=== PATIENT | female | born 1960 | race Caucasian/White ===

== ENCOUNTER → 2019-11-28 14:17 | Outpatient (CLI) | payer OTHER, SELFPAY ==
--- NOTE | ~2019-11-28 | MM_ITS ---
EXAMINATION: MM screening [facility] BI w nicky HISTORY: Screening mammogram TECHNIQUE: Craniocaudal and mediolateral oblique 3-D tomosynthesis images were obtained and synthetic 2-D images were generated. CAD analysis was submitted and interpreted. COMPARISON: 03/17/2015, 02/24/2015, 05/22/2008, 12/13/2007 BREAST PARENCHYMAL COMPOSITION: There are scattered areas of fibroglandular density. FINDINGS: RIGHT BREAST: Multiple right breast masses are present which are seen in the posterior third of the u pper outer quadrant of the breasts, the posterior third of the lower inner breast, and the middle thi rd of the central breast. LEFT BREAST: There is no evidence of suspicious mass, calcification, or architectural distortion to s uggest malignancy. There has been no significant interval change. IMPRESSION: 1. Multiple right breast masses. 2. Additional mammographic views and possible breast ultrasound are recommended. BI-RADS Category 0: Incomplete: Needs additional imaging evaluation. Reviewed, dictated and finalized at location A. IMPRESSION: 1. Multiple right breast masses. 2. Additional mammographic views and possible breast ultrasound are recommended . BI-RADS Category 0: Incomplete: Needs additional imaging evaluation.
== END ==
PROVIDERS: PCP Family Medicine; Visit Provider Family Medicine
DX: Z12.31 Encounter for screening mammogram for malignant neoplasm of breast (principal); R92.8 Other abnormal and inconclusive findings on diagnostic imaging of breast
CPT/HCPCS: 77063; 77067

== ENCOUNTER → 2019-12-27 14:25 | Outpatient (CLI) | payer OTHER, SELFPAY ==
--- NOTE | ~2019-12-27 | MMUS_ITS ---
EXAMINATION: MM diagnostic mammo unilat RT, US breast RT complete HISTORY: Multiple right breast masses reported on 11/28/2019 bilateral digital screening mammogram TECHNIQUE: Additional 3-D ML and spot ML, MLO and cc tomosynthesis images of the right breast were pe rformed and synthetic 2-D images were generated. CAD analysis was submitted and interpreted. High res olution complete right breast ultrasound was performed. COMPARISON: 11/28/2019 bilateral digital screening mammogram FINDINGS: MAMMOGRAPHIC FINDINGS: There is an approximately 6 x 9.5 mm circumscribed mass in the mid inner right breast. Additional ma sses may be present but obscured by patchy fibroglandular density. Complete right breast ultrasound e xamination therefore was performed. There is a biopsy marker in the lower inner right breast; history of prior benign right breast biopsy . ULTRASOUND: There are multiple scattered sonographic masses of variable size of the left breast, varying from fred roximately 2 mm simple cyst at 1:00 4 cm from the nipple to multi septated cyst of approximately 3 x 6.3 mm dimension at 3:00 6 cm from the nipple. There is a hypoechoic reniform approximately 6 x 8 mm lesion at 10:00 7 cm from the nipple with throu gh transmission, likely a mildly complicated septated cyst. Additional smaller likely cysts are present in the 10:00 and 11:00 area. No suspicious solid lesion or shadowing is evident. IMPRESSION: 1. Probable benign scattered cysts and complicated cysts of the left breast 2. 6 month follow-up diagnostic right mammogram and right breast ultrasound examination are recommend ed BI-RADS category 3, probably benign findings. Reviewed, dictated and finalized at location A. IMPRESSION: 1. Probable benign scattered cysts and complicated cysts of the left breast 2. 6 month follow-up diagnostic right mammogram and right breast ultrasound exa mination are recommended BI-RADS category 3, probably benign findings.
== END ==
PROVIDERS: PCP Family Medicine; Visit Provider Family Medicine
DX: R92.8 Other abnormal and inconclusive findings on diagnostic imaging of breast (principal)
CPT/HCPCS: 76641; 77065

== ENCOUNTER → 2020-07-30 09:29 | Outpatient (CLI) | payer OTHER, SELFPAY ==
--- NOTE | ~2020-07-30 | MMUS_ITS ---
EXAMINATION: MM diagnostic remy RT w nicky, US breast RT complete HISTORY: Six-month follow-up for probably benign right breast masses TECHNIQUE: Craniocaudal, mediolateral, and mediolateral oblique 3-D tomosynthesis images of the right breast were performed and synthetic 2-D images were generated. CAD analysis was submitted and interp reted. High resolution limited right breast ultrasound was performed. COMPARISON: 12/27/2019, 11/28/2019, 03/17/2015, 02/24/2015 FINDINGS: MAMMOGRAPHIC FINDINGS: A stable 10 mm oval, equal density, circumscribed mass is present in the posterior third of the inner right breast at the 3:00 location 7 cm from the nipple. Also seen is a stable 8 mm oval, obscured, e qual density mass is present in the middle third of the outer breast at the 8:00 location 5 cm from t he nipple. A mass previously seen in the posterior third of the lower-outer breast is decreased in si ze, most consistent with a cyst. ULTRASOUND: There is a stable 7 mm x 4 mm oval, circumscribed, parallel, complex cystic and solid mass with no po sterior features or internal vascularity at the 3:00 location 6 cm from the nipple, likely a cluster of microcysts. A stable 7 mm x 4 mm mass with similar sonographic features is noted at the 9:00 locat ion 7 cm from the nipple. A 5 mm oval, circumscribed, parallel, hypoechoic mass at the 10:00 location 7 cm from the nipple has decreased in size, likely a complex cyst. A 6 mm x 4 mm oval, circumscribed , parallel, hypoechoic mass with posterior acoustic enhancement and no internal vascularity at the 11 :00 location 3 cm from the nipple has the appearance of a cyst. Additional smaller cysts are noted th roughout the breast. IMPRESSION: 1. Probably benign right breast masses. 2. Recommend 6 month follow-up right diagnostic mammogram and ultrasound. BI-RADS category 3, probably benign findings. Reviewed, dictated and finalized at location A. CLERK IMPRESSION: 1. Probably benign right breast masses. 2. Recommend 6 month follow-up right diagnostic mammogram and ultrasound. BI-RADS category 3, probably benign findings.
== END ==
PROVIDERS: PCP Family Medicine; Visit Provider Family Medicine
DX: N60.11 Diffuse cystic mastopathy of right breast (principal); N60.12 Diffuse cystic mastopathy of left breast; N63.13 Unspecified lump in the right breast, lower outer quadrant; N63.15 Unspecified lump in the right breast, overlapping quadrants
CPT/HCPCS: 76641; 77061; 77065; G0279

== ENCOUNTER → 2021-11-24 09:11 | Outpatient (CLI) | payer OTHER, SELFPAY ==
--- NOTE | ~2021-11-24 | MMUS_ITS ---
EXAMINATION: MM diagnostic [facility]y BI w nicky, US breast RT limited HISTORY: Follow-up breast masses TECHNIQUE: Additional 3-D tomosynthesis images of the breasts were performed and synthetic 2-D images were generated. CAD analysis was submitted and interpreted. High resolution Limited right breast ult rasound was performed. COMPARISON: Comparison to multiple prior studies sequentially, with oldest reviewed study dated 05/2015. BREAST PARENCHYMAL COMPOSITION: Breast composed of scattered areas of fibroglandular density. FINDINGS: MAMMOGRAPHIC FINDINGS: The left breast is stable without evidence for malignancy. There are stable asymmetries throughout th e right breast. No new mass, calcification or architectural distortion. ULTRASOUND: Limited right breast ultrasound: At 9:00, 7 cm from the nipple there is 9 mm intramammary lymph node. At 10:00, 7 cm from the nipple there is an oval hypoechoic 7 mm mass with parallel orientation, no s ignificant posterior features and no internal vascularity. Also at 10:00, 7 cm from the nipple there is an irregular shaped hypoechoic mass measuring 4 mm with antiparallel configuration which is not de finitely seen on prior examination. At 10:00, 7 cm from the nipple there is a 7 mm cyst. At 11:00, 3 cm from the nipple there is an oval hypoechoic mass measuring 5 x 3 x 5 mm with parallel orientation, no significant posterior features and no internal vascularity without significant change from prior examination. There is a small lipoma at 3:00, 6 cm from the nipple measuring 5 mm. IMPRESSION: 1. New irregular shaped hypoechoic mass measuring 4 mm greatest dimension at 10:00, 7 cm from the nip ple. 2. Ultrasound-guided right breast biopsy recommended. BI-RADS category 4, suspicious findings. Reviewed, dictated and finalized at location A. CHEF IMPRESSION: 1. New irregular shaped hypoechoic mass measuring 4 mm greatest dimension at 10 :00, 7 cm from the nipple. 2. Ultrasound-guided right breast biopsy recommended. BI-RADS category 4, suspicious findings.
== END ==
PROVIDERS: PCP Family Medicine; Visit Provider Family Medicine
DX: R59.1 Generalized enlarged lymph nodes (principal); N63.11 Unspecified lump in the right breast, upper outer quadrant; D17.39 Benign lipomatous neoplasm of skin and subcutaneous tissue of other sites
CPT/HCPCS: 76642; 77062; 77066; G0279